=== PATIENT | male | born 1990 | race African-American/Black ===

== ENCOUNTER 2017-08-10 11:58 | Emergency (ER) | payer SELFPAY ==
[2017-08-10] MEDS ORDERED: levETIRAcetam In NaCl (Iso-Os) 1,000 MG in Premix Bag 1 BAG IVPB SCH (12:15)
[2017-08-10] MEDS ORDERED: Lorazepam 2 MG/ML VIAL ONE (12:33)
[2017-08-10 12:59] LABS: #Basophils 0.1 thou/uL (0.0-0.2); #Eosinphils 0.3 thou/uL (0.0-0.7); #Lymphocytes 5.5 thou/uL (1.20-3.40); #Neutrophils 4.4 thou/uL (1.40-6.50); %Basophils 0.9 % (0.0-1.0); %Eosinophils 2.6 % (0.0-10.0); %Lymphocytes 48.6 % (21.0-51.0); %Neutrophils 38.9 % (42.0-75.0); Mean Corpuscular HGB CONC 31.5 g/dL (32.0-36.0); Mean Corpuscular Hemoglobin 30.6 pg (27.0-31.0); Mean Corpuscular Volume 97.1 fl (80.0-94.0); Platelet Count 327 thou/uL (130-400); RBC Distribution Width 12.5 % (11.5-14.5); Red Blood Cell (RBC) Count 5.57 mill/uL (4.70-6.10); White Blood Cell (WBC) Count 11.2 thou/uL (4.8-10.8)
[2017-08-10 13:10] LABS: ALT (SGPT) 27 U/L (8-55); AST (SGOT) 27 U/L (5-34); Acetaminophen Less than 6.0 mcg/mL (10.0-30.0); Albumin 4.8 g/dL (3.5-5.0); Alcohol Less than 10 mg/dL (Less than 10); Alkaline Phosphatase 70 U/L (40-150); Anion Gap 25 mmol/L (10-20); BUN (Urea Nitrogen) 10 mg/dL (8.9-20.6); Bilirubin, Total 0.3 mg/dL (0.2-1.2); CK (CPK) 152 U/L (30-200); Calc. Creatinine Clearance 0 mL/min (70-130); Calcium 9.4 mg/dL (7.8-10.44); Carbon Dioxide 11 mmol/L (22-29); Chloride 106 mmol/L (98-107); Estimated GFR-MDRD 69; Globulin 3.4 g/dL (2.4-3.5); Glucose 182 mg/dL (70-105); Protein, Total 8.2 g/dL (6.0-8.3); Salicylate Less than 8.0 mg/dL (15.0-30.0); Sodium 138 mmol/L (136-145)
--- NOTE | 2017-08-10 13:16 | RAD ---
PORTABLE CHEST: HISTORY: Seizure. FINDINGS: The lungs appear clear and well aerated. Heart size is accentuated by this projection. Mediastinum is unremarkable, considering this projection. IMPRESSION: No acute finding. POS: [facility]
--- NOTE | 2017-08-10 14:38 | CT ---
CT BRAIN WITHOUT CONTRAST: HISTORY: Altered mental status and seizure. FINDINGS: No evidence of infarct, hemorrhage, midline shift, or abnormal extraaxial fluid collections is seen. The ventricular size is normal and the basilar cisterns patent. The bony calvarium is intact. The visualized paranasal sinuses and mastoid air cells are well aerated. IMPRESSION: No CT evidence of acute intracranial process. POS: [facility]
== END 2017-08-10 16:38 | disposition home or self-care (01) ==
LOC: ERS 11:58
DX: G40.909 Epilepsy, unspecified, not intractable, without status epilepticus (principal)
CPT/HCPCS: 36415; 36416; 70450; 71045; 80053; 80307; 82550; 83605; 84146; 84443; 85025; 93005; 96361; 96365; 96375; J1953; J2060

== ENCOUNTER 2017-10-19 13:04 | Observation (INO) | payer SELFPAY ==
[2017-10-19] MEDS ORDERED: Lorazepam 2 MG/ML VIAL ONE ×2 (13:38→14:03)
[2017-10-19 13:52] LABS: Amphetamine Not Detected (NotDetected); Barbiturates Screen Not Detected (NotDetected); Benzodiazepine Screen Not Detected (NotDetected); Cocaine Metabolite Screen Not Detected (NotDetected); Medtox Control Line Valid? VALID (VALID); Medtox Reader # READER 4; Methadone Not Detected (NotDetected); Methamphetamine Not Detected (NotDetected); Opiate Screen Not Detected (NotDetected); Oxycodone Screen Not Detected (NotDetected); Phencyclidine (PCP) Not Detected (NotDetected); THC/Cannabinoid Screen Detected (NotDetected); Tricyclic Screen Not Detected (NotDetected)
[2017-10-19 13:58] LABS: #Eosinphils 0.2 thou/uL (0.0-0.7); #Lymphocytes 3.2 thou/uL (1.20-3.40); #Neutrophils 10.7 thou/uL (1.40-6.50); %Basophils 0.3 % (0.0-1.0); %Lymphocytes 20.9 % (21.0-51.0); %Monocytes 6.6 % (0.0-10.0); %Neutrophils 71.2 % (42.0-75.0); Hemoglobin 16.3 g/dL (14.0-18.0); Mean Corpuscular HGB CONC 31.7 g/dL (32.0-36.0); Mean Corpuscular Hemoglobin 30.4 pg (27.0-31.0); Mean Corpuscular Volume 95.9 fL (78.0-98.0); Mean Platelet Volume 7.5 fL (7.4-10.4); Platelet Count 269 thou/uL (130-400); RBC Distribution Width 12.7 % (11.5-14.5); Red Blood Cell (RBC) Count 5.36 mill/uL (4.70-6.10); White Blood Cell (WBC) Count 15.1 thou/uL (4.8-10.8)
[2017-10-19 14:12] LABS: ALT (SGPT) 36 U/L (8-55); AST (SGOT) 25 U/L (5-34); Albumin 4.8 g/dL (3.5-5.0); Alkaline Phosphatase 73 U/L (40-150); Anion Gap 26 mmol/L (10-20); BUN (Urea Nitrogen) 7 mg/dL (8.9-20.6); Bilirubin, Total 0.3 mg/dL (0.2-1.2); Calc. Creatinine Clearance 0 mL/min (70-130); Calcium 9.7 mg/dL (7.8-10.44); Chloride 110 mmol/L (98-107); Estimated GFR-MDRD 88; Globulin 3.3 g/dL (2.4-3.5); Glucose 149 mg/dL (70-105); Potassium 4.2 mmol/L (3.5-5.1); Protein, Total 8.1 g/dL (6.0-8.3); Sodium 140 mmol/L (136-145)
[2017-10-19 14:17] LABS: Carbon Dioxide 8 mmol/L (22-29)
[2017-10-19] MEDS ORDERED: Acetaminophen 325 MG TAB PO PRN (15:14)
[2017-10-19] MEDS ORDERED: Lorazepam 2 MG/ML VIAL SLOW IVP PRN (15:19)
[2017-10-19 16:01] LABS: Anion Gap 12 mmol/L (10-20); BUN (Urea Nitrogen) 6 mg/dL (8.9-20.6); Calc. Creatinine Clearance 0 mL/min (70-130); Calcium 8.5 mg/dL (7.8-10.44); Carbon Dioxide 20 mmol/L (22-29); Chloride 109 mmol/L (98-107); Estimated GFR-MDRD Greater than 90; Glucose 97 mg/dL (70-105); Potassium 4.3 mmol/L (3.5-5.1); Sodium 137 mmol/L (136-145)
[2017-10-19 16:45] VITALS: BMI 30.7
[2017-10-19] MEDS: Sodium Chloride 0.9% 1,000 ML IV SCH (17:37)
--- NOTE | 2017-10-19 19:51 | HP ---
CHIEF COMPLAINT: Seizure. HISTORY OF PRESENT ILLNESS: The patient is a very nice 27-year-old male with history of epilepsy who was brought in to the hospital for seizures. Patient's girlfriend is at the bedside stated that bala mojica normally gets auras prior to his seizures, which he gets very diaphoretic and starts dry heaving . The patient's girlfriend stated that he started having this sensation today called her at work and as when he showed up at home, patient had a tonic-clonic seizure, which lasted for approximately acc ording to her for 4 minutes. The patient's girlfriend stated that she called the EMS and brought him to the hospital. ER notified me that patient had a seizure on his way to the hospital in EMS and al so while he was in the ER, had two more additional seizures. The patient's girlfriend stated that he ran out of his medication about 2 weeks ago. She states that normally when they are able to afford it, she gets the medications; however, he has not been able to take his medications for the past 2 we eks. PAST MEDICAL HISTORY: History of seizures. PAST SURGICAL HISTORY: Denies any surgical history. ALLERGIES: He has got no known drug allergies. MEDICATIONS: He takes Keppra, unknown dose. FAMILY HISTORY: No family history of seizures, hypertension or diabetes. REVIEW OF SYSTEMS: Currently, patient appears to be still drowsy and unable to answer all the questi ons. PHYSICAL EXAMINATION: VITAL SIGNS: He is afebrile at temperature of 98.5, respirations 16, pulse 77, blood pressure 135/70 . GENERAL: Awake, oriented to self and his girlfriend; however, still appears to be drowsy. HEENT: Normocephalic, atraumatic. NECK: No lymphadenopathy noted. CARDIOVASCULAR: S1, S2 present. No murmurs, rubs or gallops. LUNGS: Clear to auscultation. No rhonchi, wheezes noted. ABDOMEN: Soft, nontender. Bowel sounds are present in stool. EXTREMITIES: No edema. Pedal pulses present x2. NEUROLOGIC: No focal deficits noted. SKIN: Intact. No rashes or lesions noted. ASSESSMENT AND PLAN: Patient is a very pleasant 27-year-old male with history of seizure who present s to the hospital with acute seizure. 1. Seizures. Patient ran out of his medication about 2 weeks ago and therefore was unable to take h is medications due to financial issues. Patient has been given Versed and Ativan in the ER. He appr oximately had a total of maybe 3-5 seizures today. We will get a Neurology consult. We will start p atient on IV Keppra 500 b.i.d. I do not think he needs his Keppra dose to be increased. I think we can start with 500 b.i.d. IV and see if we can give him programs for his Keppra to be affordable. 2. He does have anion gap metabolic acidosis which is most likely secondary to his seizure. We will continue to monitor. We will also start him gentle hydration and also will check another BMP right now. 3. Mild leukocytosis which most likely could be reactive. 4. Deep venous thrombosis prophylaxis. We will put the patient on sequential compression devices.
--- NOTE | 2017-10-20 02:56 | CON ---
DATE OF CONSULTATION: 10/19/2017 REFERRING PHYSICIAN: Dr. Coleman Benavidez. REASON FOR CONSULTATION: Seizure. HISTORY OF PRESENT ILLNESS: Mr. Dan is a pleasant 27-year-old -[place] male who has been co nsulted for evaluation of seizure. History is obtained from his who was present at bedside. Wi fe reports that patient started having seizure approximately 3 years ago. He has a preictal aura of abnormal taste and increased saliva production along with the diaphoresis. He then becomes stiff in both upper extremities and has tonic clonic convulsions that last 2-3 minutes followed by drowsiness and confusion. He has had episodes, where he had urinated himself as well as tongue biting. She rep orts that he has been taking Keppra 500 mg twice daily, which does help with control of his seizures; however, due to the cost of the medication on him being self-pay, he is not able to afford medicatio n every month and when he misses the medication, he tends to have seizure coming on. He was off medi cation for about 2 weeks prior to this event. Currently, patient denies any headache, vision changes , chest pain, palpitation, numbness, tingling, weakness. PAST MEDICAL HISTORY: Significant for seizure disorder. PAST SURGICAL HISTORY: Significant for right leg surgery. SOCIAL HISTORY: He drinks alcohol on a daily basis. He does also smoke half a pack on a daily basis . He denies illicit drug use. FAMILY HISTORY: Noncontributory. CURRENT MEDICATIONS: Please review MAR. ALLERGIES: No known drug allergies. REVIEW OF SYSTEMS: As mentioned above in HPI, otherwise negative. PHYSICAL EXAMINATION: VITAL SIGNS: Blood pressure 141/76, pulse of 85, temperature of 98.8, respirations of 12, O2 sats 98 % on room air. GENERAL: Well-developed, well-nourished -[place] male in no apparent distress. RESPIRATORY: Clear to auscultation bilaterally. CARDIOVASCULAR: Regular rate and rhythm. NEUROLOGIC: Mental status: Patient is awake, alert, oriented x3. Speech and language: Fluent spee ch. Cranial nerves: Pupils are 3 mm and reactive. Visual wiggins are intact. Extraocular muscle mo vements are intact. No nystagmus. Face is symmetric. Tongue and uvula are midline. Motor exam johnny wed normal tone and bulk with 5/5 strength in both upper and lower extremities. Sensory: Sensation is intact and symmetric. Deep tendon reflexes 2+ reflexes in both upper and lower extremities. Deborah nski: Plantar responses flexion bilaterally. Coordination intact to [id number] and finger t apping bilaterally. LABORATORY DATA: Reviewed, which included CBC, CMP, urine drug screen, which is significant for WBC of 15.1. Urine drug screen was positive for cannabinoids, otherwise unremarkable. IMAGING STUDIES: None. IMPRESSION: Generalized tonic clonic seizure. ASSESSMENT AND PLAN: Mr. Dan is a pleasant 27-year-old -[place] male with a history of seiz ure disorder on Keppra presented with recurrent episode of seizure. This was in context of being off medication for at least 2 weeks. I have discussed with the patient and his in detail and expla ined that he needs to continue taking this medication on a regular basis. They can use [email or web address], which may help to reduce the cost of the medicine down from 80 dollar down to less than 20 dollar. A t this time, there is no further neurological workup needed from my standpoint. If he remains seizur e free, he is okay to be discharged home on tomorrow morning. Thank you for consultation.
[2017-10-20 04:59] LABS: #Eosinphils 0.1 thou/uL (0.0-0.7); #Lymphocytes 2.4 thou/uL (1.20-3.40); #Monocytes 0.8 thou/uL (0.11-0.59); #Neutrophils 5.9 thou/uL (1.40-6.50); %Basophils 0.4 % (0.0-1.0); %Eosinophils 1.6 % (0.0-10.0); %Lymphocytes 25.6 % (21.0-51.0); %Monocytes 8.7 % (0.0-10.0); %Neutrophils 63.7 % (42.0-75.0); Hemoglobin 14.1 g/dL (14.0-18.0); Mean Platelet Volume 7.4 fL (7.4-10.4); Platelet Count 229 thou/uL (130-400); RBC Distribution Width 12.5 % (11.5-14.5); Red Blood Cell (RBC) Count 4.54 mill/uL (4.70-6.10); White Blood Cell (WBC) Count 9.3 thou/uL (4.8-10.8)
[2017-10-20 05:10] LABS: Anion Gap 12 mmol/L (10-20); BUN (Urea Nitrogen) 6 mg/dL (8.9-20.6); Calc. Creatinine Clearance 139 mL/min (70-130); Calcium 8.8 mg/dL (7.8-10.44); Carbon Dioxide 21 mmol/L (22-29); Chloride 107 mmol/L (98-107); Estimated GFR-MDRD Greater than 90; Glucose 84 mg/dL (70-105); Potassium 3.6 mmol/L (3.5-5.1); Sodium 136 mmol/L (136-145)
[2017-10-20] MEDS: Sodium Chloride 0.9% 1,000 ML IV SCH (05:39)
[2017-10-20 12:10] VITALS: BP 133/66; TEMP 99.4
--- NOTE | 2017-10-21 02:31 | DIS ---
DATE OF ADMISSION: 10/19/2017 DATE OF DISCHARGE: 10/20/2017 DISCHARGE DIAGNOSES: 1. Seizure. 2. Metabolic acidosis. HOSPITAL COURSE: The patient is a very pleasant 27-year-old male who presented to the hospital with seizure x4. Patient stated that he did not take his medications for the past 2 weeks due unable to a fford it. Patient was seen by Neurology. No further intervention was done. He was discharged home with normal dose of Keppra 500 mg p.o. b.i.d. Patient also was given a prescription for good prescri ption which costed him $14 and this was made sure since the girlfriend went in and bought the prescri ption and that is when the patient was discharged. PHYSICAL EXAMINATION: VITAL SIGNS: Temperature 98.2, pulse 65, respirations 15, O2 sat 94% room air, blood pressure 133/66 . GENERAL: He is awake, alert, oriented, is in no apparent distress. CARDIOVASCULAR: S1, S2 present. No murmurs, rubs or gallops. ABDOMEN: Soft, nontender. Bowel sounds are present x2. EXTREMITIES: No edema. DISCHARGE MEDICATIONS: Keppra 500 mg p.o. b.i.d.
== END 2017-10-20 12:15 | disposition home or self-care (01) ==
LOC: ERS 13:04 → 2SW 14:52
PROVIDERS: ADMIT Internal Medicine; ATTEND Internal Medicine
DX: R56.9 Unspecified convulsions (principal); E87.2 Acidosis; F17.200 Nicotine dependence, unspecified, uncomplicated; Z79.899 Other long term (current) drug therapy
CPT/HCPCS: 36415; 80048; 80053; 80306; 84146; 85025; 96361; 96365; 96374; 96375; 96376; G0378; J1953; J2060